=== PATIENT | male | born 1960 | race Caucasian/White ===

== ENCOUNTER → 2023-02-07 | Outpatient (CLI) | payer OTHER ==
[2023-02-07 18:01] LABS: BASO # 0.1 10^3/uL (0.0-0.2); BASO % 0.8 % (0.0-1.0); EOS # 0.2 10^3/uL (0.0-0.5); EOS % 2.5 % (0.0-3.0); HEMATOCRIT 44.7 % (42.0-52.0); LYMPH % 25.8 % (24.0-44.0); MEAN CORPUSCULAR HEMOGLOBIN 31.9 pg (27.0-33.0); MEAN CORPUSCULAR HGB CONC 33.6 g/dl (32.0-36.5); MEAN CORPUSCULAR VOLUME 95.1 fl (80.0-96.0); MONO # 0.7 10^3/uL (0.0-0.8); MONO % 8.4 % (2.0-8.0); NEUTROPHILS # 4.9 10^3/uL (1.5-8.5); NEUTROPHILS % 62.1 % (36.0-66.0); PLATELET COUNT, AUTOMATED 234 10^3/uL (150-450); WHITE BLOOD COUNT 7.9 10^3/uL (4.0-10.0)
[2023-02-07 18:13] LABS: C REACTIVE PROTEIN QUANTITATIV < 0.40 MG/DL (<1.0)
[2023-02-07 18:15] LABS: ALBUMIN 3.8 G/DL (3.2-5.2); ALKALINE PHOSPHATASE 68 U/L (46-116); ALT/SGPT 33 U/L (7.0-40); AST/SGOT 17 U/L (<34); BILIRUBIN,TOTAL 1.4 MG/DL (0.3-1.2); BLOOD UREA NITROGEN 13 MG/DL (9-23); CALCIUM LEVEL 9.8 MG/DL (8.3-10.6); CARBON DIOXIDE LEVEL 28 MMOL/L (20-31); CHLORIDE LEVEL 104 MMOL/L (98-107); CREATININE FOR GFR 0.81 MG/DL (0.70-1.30); GLOMERULAR FILTRATION RATE > 60.0 (>49); GLUCOSE, FASTING 91 MG/DL (74-106); POTASSIUM SERUM 4.4 MMOL/L (3.5-5.1); SODIUM LEVEL 141 MMOL/L (136-145); TOTAL PROTEIN 6.5 G/DL (5.7-8.2)
[2023-02-07 18:16] LABS: RHEUMATOID FACTOR QUANT < 3.5 IU/ML (<14)
[2023-02-07 18:32] LABS: ERYTHROCYTE SEDIMENTATION RATE 9 mm/hr (0-20)
[2023-02-09 14:10] LABS: ANTINUCLEAR ANTIBODIES DIRECT Negative (Negative)
== END ==
LOC: M PLALAB 14:33
PROVIDERS: ATTEND Student in an Organized Health Care Education/Training Program
DX: M17.11 Unilateral primary osteoarthritis, right knee (principal)

== ENCOUNTER → 2023-09-01 | Outpatient (CLI) | payer BC | LOC: M RAD 09:05 | PROVIDERS: ATTEND Nurse Practitioner Family | DX: R93.3 Abnormal findings on diagnostic imaging of other parts of digestive tract (principal) ==

== ENCOUNTER → 2023-09-01 | Outpatient (CLI) | payer BC ==
[2023-09-01 15:20] LABS: ALBUMIN 3.8 G/DL (3.2-5.2); BILIRUBIN,DIRECT 0.4 MG/DL (<0.4); BILIRUBIN,TOTAL 1.5 MG/DL (0.3-1.2); TOTAL PROTEIN 6.4 G/DL (5.7-8.2)
== END ==
LOC: M PLALAB 09:49
PROVIDERS: ATTEND Nurse Practitioner Family
DX: R94.5 Abnormal results of liver function studies (principal)